=== PATIENT | male | born 1970 | race African-American/Black ===

== ENCOUNTER → 2019-07-15 | Outpatient (CLI) | payer BC ==
[~2019-07-15] MED LIST: AMLO1TAB98 PO; ASCO-339 PO; CLON0.1T PO; CYAN50003 PO; HYDR25TA PO; ZINC50TA69 PO; [UNRECOGNIZED DRUG - CODE] IM
== END | disposition home or self-care (01) ==
LOC: LAB 09:10
PROVIDERS: ATTEND Specialist
DX: Z01.818 Encounter for other preprocedural examination (principal); Z11.59 Encounter for screening for other viral diseases
CPT/HCPCS: U0003-CS

== ENCOUNTER → 2019-09-13 | Outpatient (CLI) | payer BC | END | disposition home or self-care (01) | LOC: LAB 12:05 | PROVIDERS: ATTEND Specialist | DX: Z01.818 Encounter for other preprocedural examination (principal); Z11.59 Encounter for screening for other viral diseases | CPT/HCPCS: C9803; U0003 ==

== ENCOUNTER 2019-09-17 05:57 | Day surgery (SDC) | payer BC ==
[~2019-09-17] VITALS: Ht 175.3 cm; Wt 122.5 kg
[~2019-09-17 05:57] MED LIST changes: -AMLO1TAB98 PO; -CLON0.1T PO
[2019-09-17] MEDS ORDERED: LACTATED RINGERS 1,000 ML IV SCH (06:30)
[2019-09-17] MEDS ORDERED: SKIN ADHESIVE 0.7 GM EA TOP ONE (07:03)
[2019-09-17] MEDS ORDERED: BUPIVACAINE HCL/PF 0.5% (5MG/ML) 10ML ONE ×2 (07:04→08:38)
[2019-09-17] MEDS ORDERED: LIDOCAINE HCL 1% 20ML VIAL (Pyxis) INJ ONE ×2 (07:04→08:38)
[2019-09-17] MEDS ORDERED: BACITRACIN 50,000 UNITS/VIAL ONE (07:04)
[2019-09-17] MEDS ORDERED: NORMAL SALINE 0.9% 10 ML SYR ONE (07:04)
[2019-09-17] MEDS ORDERED: FENTANYL CITRATE/PF 50MCG/ML 2ML VIAL ONE (07:34)
[2019-09-17] MEDS ORDERED: PROPOFOL 200MG/20ML VIAL IV ONE (07:34)
[2019-09-17] MEDS ORDERED: MIDAZOLAM HCL 2 MG/2 ML VIAL ONE (07:35)
[2019-09-17] MEDS ORDERED: PROPOFOL 10MG/ML 100ML 100 ML IV ONE ×2 (07:53→08:55)
[2019-09-17] MEDS ORDERED: AMLO1TAB98 PO (08:01)
[2019-09-17] MEDS ORDERED: CLON0.1T PO (08:01)
[2019-09-17] MEDS ORDERED: GLYCOPYRROLATE 0.2 MG/ML 2ML VIAL ONE (08:25)
[2019-09-17] MEDS ORDERED: PHENYLEPHRINE HCL 10 MG/ML 1ML (IV VIAL) IV ONE (09:08)
[2019-09-17] MEDS ORDERED: KETOROLAC 30MG/ML VIAL ONE (10:14)
[2019-09-17] MEDS ORDERED: CEFAZOLIN SODIUM 1000MG/VIAL ONE (10:22)
[2019-09-17] MEDS ORDERED: HYDROCODONE/ACETAMINOPHEN 5/325MG TABLET PO PRN (11:00)
[2019-09-17] MEDS ORDERED: ONDANSETRON HCL 4MG/2ML INJ IV PRN (11:00)
[2019-09-17] MEDS: HYDROMORPHONE HCL/PF 2MG/ML CPJ IV PRN ×2 (11:03→11:12)
[2019-09-17 11:21] VITALS: BP 115/62
== END 2019-09-17 12:30 | disposition home or self-care (01) ==
LOC: OR 05:57
PROVIDERS: ATTEND Specialist
DX: D17.0 Benign lipomatous neoplasm of skin and subcutaneous tissue of head, face and neck (principal); D17.79 Benign lipomatous neoplasm of other sites; I10 Essential (primary) hypertension; E66.01 Morbid (severe) obesity due to excess calories; Z79.899 Other long term (current) drug therapy; Z98.890 Other specified postprocedural states; Z68.39 Body mass index [BMI] 39.0-39.9, adult
CPT/HCPCS: 21552; 21931; 88304; J0690; J1170; J1885; J2250; J2370; J2704; J3010; J3490

== ENCOUNTER → 2019-10-09 | Outpatient (CLI) | payer BC ==
[~2019-10-09] MED LIST changes: +AMLO1TAB98 PO; +CLON0.1T PO; -HYDR25TA PO
== END | disposition home or self-care (01) ==
LOC: LAB 09:35
PROVIDERS: ATTEND Specialist
DX: Z01.812 Encounter for preprocedural laboratory examination (principal); Z20.828 Contact with and (suspected) exposure to other viral communicable diseases
CPT/HCPCS: 87635

== ENCOUNTER 2019-10-11 06:16 | Day surgery (SDC) | payer BC ==
[~2019-10-11] VITALS: Ht 170.2 cm; Wt 122.5 kg
[~2019-10-11 06:16] MED LIST changes: +LACTATED RINGERS 1,000 ML IV SCH
[2019-10-11] MEDS ORDERED: LIDOCAINE HCL 1% 20ML VIAL (Pyxis) INJ ONE (06:45)
[2019-10-11] MEDS ORDERED: BACITRACIN 50,000 UNITS/VIAL ONE (06:45)
[2019-10-11] MEDS ORDERED: BUPIVACAINE HCL/PF 0.5% (5MG/ML) 10ML ONE (06:45)
[2019-10-11] MEDS ORDERED: SKIN ADHESIVE 0.7 GM EA TOP ONE (06:50)
[2019-10-11] MEDS ORDERED: ROCURONIUM BROMIDE 10MG/ML VIAL 5ML IV ONE (07:31)
[2019-10-11] MEDS ORDERED: MIDAZOLAM HCL 2 MG/2 ML VIAL ONE (07:31)
[2019-10-11] MEDS ORDERED: GLYCOPYRROLATE 0.2 MG/ML 2ML VIAL ONE (07:31)
[2019-10-11] MEDS ORDERED: FENTANYL CITRATE/PF 50MCG/ML 2ML VIAL ONE ×2 (07:31→10:19)
[2019-10-11] MEDS ORDERED: PROPOFOL 200MG/20ML VIAL IV ONE (07:31)
[2019-10-11] MEDS ORDERED: NEOSTIGMINE METHYLSULFATE 1MG/ML 10 ML VIAL ONE (07:31)
[2019-10-11] MEDS ORDERED: SODIUM CHLORIDE 0.9% 10ML VIAL ONE ×2 (07:32→09:48)
[2019-10-11] MEDS ORDERED: CEFAZOLIN SODIUM 1000MG/VIAL ONE ×2 (07:32→09:09)
[2019-10-11] MEDS ORDERED: LIDOCAINE HCL/PF 1% 10 MG/ML 5ML VIAL ONE (07:32)
[2019-10-11] MEDS ORDERED: EPHEDRINE SULFATE 50MG/ML VIAL ONE (09:47)
[2019-10-11] MEDS ORDERED: PHENYLEPHRINE HCL 10 MG/ML 1ML (IV VIAL) IV ONE (09:48)
[2019-10-11] MEDS ORDERED: MEPERIDINE HCL/PF 25MG/ML CPJ IV PRN (13:15)
[2019-10-11] MEDS ORDERED: HYDROMORPHONE HCL/PF 2MG/ML CPJ IV PRN (13:15)
[2019-10-11] MEDS ORDERED: ONDANSETRON HCL 4MG/2ML INJ IV PRN (13:15)
== END 2019-10-11 12:20 | disposition home or self-care (01) ==
LOC: OR 06:16
PROVIDERS: ATTEND Specialist
DX: D17.79 Benign lipomatous neoplasm of other sites (principal); I10 Essential (primary) hypertension; E66.01 Morbid (severe) obesity due to excess calories; Z79.899 Other long term (current) drug therapy; Z68.41 Body mass index [BMI] 40.0-44.9, adult
CPT/HCPCS: 10140; 12005; 87070; 87075; 87077; 87186; 87205; 88304; J0690; J2250; J2370; J2704; J2710; J3010; J3490